=== PATIENT | male | born 1995 | race Caucasian/White ===

== ENCOUNTER 2018-04-17 21:28 | Outpatient (CLI) | payer SELFPAY | END 2018-04-17 21:29 | disposition critical access hospital (66) | LOC: EMS 21:28 | PROVIDERS: ATTEND Surgery | DX: M25.532 Pain in left wrist (principal); S61.412A Laceration without foreign body of left hand, initial encounter; V00.131A Fall from skateboard, initial encounter; Y93.51 Activity, roller skating (inline) and skateboarding | CPT/HCPCS: A0425; A0429 ==

== ENCOUNTER 2018-04-17 21:42 | Emergency (ER) | payer SELFPAY ==
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
[2018-04-17] MEDS ORDERED: BUFFERED LIDOCAINE 10 ML SYRINGE SUBQ STA (22:13)
--- NOTE | 2018-04-17 22:20 | XRAY Report ---
Reason: FOOSH Procedure Date: 04/17/2018 Accession Number: [id number] / [id number] Procedure: XR - Wrist 4 View LT CPT Code: FULL RESULT: EXAM: LEFT WRIST RADIOGRAPHY EXAM DATE: 04/17/2018 10:06 PM. CLINICAL HISTORY: Fall, left wrist pain COMPARISON: None. TECHNIQUE: 4 views. FINDINGS: Bones: Normal. No fractures or bone lesions. Joints: Normal. No subluxations. Soft Tissues: Normal. No soft tissue swelling. IMPRESSION: Normal wrist radiography. [facility]
[2018-04-17] MEDS ORDERED: HYDROcod/ACET 5/325 Prepack 4 PO STA (22:58)
[2018-04-17 23:30] VITALS: BP 148/62
== END 2018-04-17 23:34 | disposition home or self-care (01) ==
LOC: ED 21:42
DX: S61.412A Laceration without foreign body of left hand, initial encounter (principal); S63.502A Unspecified sprain of left wrist, initial encounter; S80.212A Abrasion, left knee, initial encounter; V03.92XA Pedestrian on skateboard injured in collision with car, pick-up truck or van, unspecified whether traffic or nontraffic accident, initial encounter
CPT/HCPCS: 12001; 29125; 99282; 99283

== ENCOUNTER 2018-04-27 00:31 | Outpatient (CLI) | payer SELFPAY | END 2018-04-27 00:32 | disposition critical access hospital (66) | LOC: EMS 00:31 | PROVIDERS: ATTEND Surgery | DX: R45.851 Suicidal ideations (principal) | CPT/HCPCS: A0425; A0429 ==